=== PATIENT | female | born 1980 | race American Indian/Alaskan Native ===

== ENCOUNTER 2018-08-21 09:34 | Inpatient (IN) | payer MEDICAID ==
[2018-08-21] MEDS ORDERED: LACTATED RINGERS 1,000 ML IV SCH (10:00)
[2018-08-21] MEDS ORDERED: ANCEF/STERILE WATER 2 GM/20 ML 2 GM/20 ML SYRINGE IV NR (10:00)
[2018-08-21 10:26] LABS: Basophils % (Auto) 0.4 % (0.0-1.8); Eosinophils # (Auto) 0.1 K/mm3 (0.0-0.4); Eosinophils % (Auto) 1.4 % (0.0-4.3); Hematocrit 32.9 % (30.3-42.9); Hemoglobin 11.1 gm/dl (10.1-14.3); Lymphocytes # (Auto) 1.1 K/mm3 (1.2-5.4); Mean Corpuscular HGB Conc 34 % (30-34); Mean Corpuscular Volume 81 fl (79-97); Monocytes # (Auto) 0.7 K/mm3 (0.0-0.8); Platelet Count 425 K/mm3 (140-440); Red Blood Count 4.09 M/mm3 (3.65-5.03); Red Cell Distribution Width 19.9 % (13.2-15.2)
--- NOTE | 2018-08-21 10:45 | Anesthesia Consultation ---
Anesthesia Consult and Med Hx Date of service: 08/21/18 - Airway Anesthetic Teeth Evaluation: Good ROM Head & Neck: Adequate Mental/Hyoid Distance: Adequate Mallampati Class: Class II Intubation Access Assessment: Probably Good - Pre-Operative Health Status ASA Pre-Surgery Classification: ASA2 Proposed Anesthetic Plan: Epidural, Spinal - Pulmonary Hx Asthma: Yes COPD: No Hx Pneumonia: No - Cardiovascular System Hx Hypertension: No - Central Nervous System Hx Seizures: No Hx Psychiatric Problems: No - Endocrine Hx Renal Disease: No Hx End Stage Renal Disease: No Hx Hypothyroidism: No Hx Hyperthyroidism: No - Hematic Hx Anemia: No Hx Sickle Cell Disease: No - Other Systems Hx Alcohol Use: No - Additional Comments Anesthesia Medical History Comments: uterine scar, twin gestation
--- NOTE | 2018-08-21 10:45 | Anesthesia Day of Surgery ---
Anesthesia Day of Surgery - Day of Surgery Patient Examined: Yes Patient H&P Reviewed: Yes Patient is NPO: Yes
[2018-08-21] MEDS ORDERED: ZOFRAN IV PRN (11:00)
[2018-08-21] MEDS ORDERED: PEPCID IV NR (11:00)
[2018-08-21] MEDS ORDERED: BICITRA PO NR (11:00)
[2018-08-21] MEDS ORDERED: NARCAN 0.4 MG/1 ML IV PRN ×2 (11:00→13:29)
[2018-08-21] MEDS ORDERED: REGLAN IV NR (11:00)
[2018-08-21] MEDS ORDERED: PHENERGAN PO PRN (11:00)
[2018-08-21] MEDS ORDERED: PITOCin/NS 20 UNIT/1000ML DRIP 20 UNITS/1,000 ML BAG IV SCH ×2 (11:00→14:00)
[2018-08-21] MEDS ORDERED: SODIUM CHLORIDE FLUSH SYRINGE 10 ML IV PRN (11:00)
[2018-08-21] MEDS ORDERED: DILAUDID IV PRN ×2 (11:00)
[2018-08-21] MEDS ORDERED: PHENERGAN PR PRN (11:00)
--- NOTE | 2018-08-21 11:17 | History and Physical Report ---
History of Present Illness Date of examination: 08/21/18 Date of admission: 08/21/18 09:34 Chief complaint: scheduled repeat csec History of present illness: This is a 37 yo at 37+2 with Di DI twins here for scheduled repeat csec. She is a patient of [facility] transferring in at 17 weeks. She is a previous csec x2. Seen and evaluated by MFM secondary to sickle cell trait, AMA. She tested + for open spina bifida. She has a hx of pree on asa. She has been followed by IUGR by MFM as well. Patient had an abnormal 1hr and refused 3hr GTT. She has a hx of herpes without any outbreaks. Past History Past Medical History: hematologic disorders (anemia) Family/Genetic History: diabetes, heart disease, hypertension, cancer (breast) Social history: no significant social history, . denies: smoking, alcohol abuse, prescription drug abuse - Obstetrical History Expected Date of Delivery: 09/12/18 Actual Gestation: 36 Week(s) 6 Day(s) : 6 Para: 3 Hx # Term Pregnancies: 3 Number of Pregnancies: 0 Spontaneous Abortions: 2 Induced : 0 Number of Living Children: 3 Medications and Allergies Allergies Allergy/AdvReac Type Severity Reaction Status Date / Time No Known Allergies Allergy Verified 03/13/18 18:28 Home Medications Medication Instructions Recorded Confirmed Last Taken Type Acetaminophen 500 mg PO Q8H PRN #12 tablet 03/13/18 Unknown Rx Penicillin V Potassium 500 mg PO Q8H 10 Days #30 tablet 03/13/18 Unknown Rx Active Meds: Active Medications Citric Acid/Sodium Citrate (Bicitra) 30 ml PO ONCE NR Stop: 08/21/18 15:00 Diphenhydramine HCl (Benadryl) 12.5 mg IV Q2H PRN PRN Reason: Itching Famotidine (Pepcid) 20 mg IV ONCE NR Stop: 08/21/18 15:00 Hydromorphone HCl (Dilaudid) 0.5 mg IV Q5M PRN PRN Reason: Breakthrough Pain Stop: 08/21/18 15:00 Hydromorphone HCl (Dilaudid) 0.5 mg IV Q4H PRN PRN Reason: breakthrough pain > 7/10 Cefazolin Sodium (Ancef/Sterile Water 2 Gm/20 Ml) 2 gm in 20 mls @ 80 mls/hr IV PREOP NR; Protocol Stop: 08/21/18 15:00 Lactated Ringer's (Lactated Ringers) 1,000 mls @ 2,250 mls/hr IV PREOP ROSIE Stop: 08/22/18 10:27 Oxytocin/Sodium Chloride (Pitocin/Ns 20 Unit/1000ml Drip) 20 units in 1,000 mls @ 0 mls/hr IV TITR ROSIE Ketorolac Tromethamine (Toradol) 30 mg IV Q6H PRN PRN Reason: Pain, Moderate (4-6) Stop: 08/26/18 10:59 Metoclopramide HCl (Reglan) 10 mg IV ONCE NR Stop: 08/21/18 15:00 Naloxone HCl (Narcan 0.4 Mg/1 Ml) 0.2 mg IV Q2MIN PRN PRN Reason: Res Rate </= 8 or 02 SAT < 92% Ondansetron HCl (Zofran) 4 mg IV Q8H PRN PRN Reason: Nausea And Vomiting Promethazine HCl (Phenergan) 25 mg PO Q6H PRN PRN Reason: Nausea And Vomiting Promethazine HCl (Phenergan) 25 mg ID Q6H PRN PRN Reason: Nausea And Vomiting Sodium Chloride (Sodium Chloride Flush Syringe 10 Ml) 10 ml IV PRN PRN PRN Reason: flush Review of Systems All systems: negative - Physical Exam Breasts: Positive: normal Cardiovascular: Regular rate, Normal S1 Lungs: Positive: Clear to auscultation, Normal air movement Abdomen: Positive: normal appearance, soft, normal bowel sounds. Negative: distention Vulva: both: normal Vagina: Positive: normal moisture Uterus: Positive: normal size Anus/Rectum: Positive: normal perianal skin Extremities: Positive: normal Deep Tendon Reflex Grade: Normal +2 - Obstetrical FHR: category 1 Results Result Diagrams: 08/21/18 09:55 Abnormal lab results 08/21/18 Range/Units 09:55 MCH 27 L (28-32) pg RDW 19.9 H (13.2-15.2) % [place] % (Auto) 12.0 H (0.0-7.3) % Lymph # 1.1 L (1.2-5.4) K/mm3 All other labs normal. Assessment and Plan A/P HD#1 DI DI twins at 37+2 weeks AMA, IUGR twin B recommneded delivery 36-37 weeks Previous csec consents for repeat csec which include but not limited to bleeding infection damage to pelvic and non pelvic organs risk of hysterectomy, she understands risk and will proceed with csec declines tubal ligation
[2018-08-21] MEDS ORDERED: SUBLIMAZE ONE (11:59)
[2018-08-21] MEDS ORDERED: NACL 0.9% IR ONE (12:00)
[2018-08-21] MEDS ORDERED: WATER FOR IRRIG STERILE IR ONE (12:00)
[2018-08-21] MEDS ORDERED: XYLOCAINE MPF 2% ONE ×4 (12:38→13:39)
[2018-08-21] MEDS ORDERED: NEO SYNEPHRINE/NS Syringe(OR USE) IV ONE (12:38)
[2018-08-21] MEDS ORDERED: NORCO 5/325 PO PRN (13:29)
[2018-08-21] MEDS ORDERED: ANUCORT-HC PR PRN (13:29)
[2018-08-21] MEDS ORDERED: LANSINOH TP PRN (13:29)
[2018-08-21] MEDS ORDERED: SENOKOT PO PRN (13:29)
[2018-08-21] MEDS ORDERED: TORADOL IV PRN (13:29)
[2018-08-21] MEDS ORDERED: MORPHINE IV PRN ×2 (13:29)
[2018-08-21] MEDS ORDERED: TUCKS PAD TP PRN (13:29)
--- NOTE | 2018-08-21 13:36 | Procedure Note ---
OB Delivery Note - Delivery Date of Delivery: 08/21/18 Surgeon: SONIA SALAS Estimated blood loss: other (700cc) - Section Preop diagnosis: repeat Postop diagnosis: same section procedure: section Disposition: PACU Complications: none Narrative: see op note - Infant A at 1 minute: 8 at 5 minutes: 9 Gender: Female (5 pounds 7 oz) B at 1 minute: 8 at 5 minutes: 9 Gender: Male (6 pounds 2 oz)
--- NOTE | 2018-08-21 13:47 | Operative Report ---
Operative Report Operative Report: PREOPERATIVE DIAGNOSES: 1. Twins DI DI 2. IUGR 3. Previous csec x2 POSTOPERATIVE DIAGNOSES: 1-3 BECCA OPERATION: Repeat section by low-transverse incision. ANESTHESIA: Epidural. ESTIMATED BLOOD LOSS: 700 mL. COMPLICATIONS: None. CONDITION: Stable. DRAINS: Kendall catheter. INDICATIONS: The patient is a 37-year-old, G6 para 3 at 36 weeks with twins with scheduled csec. The risks and benefits of this surgery were reviewed, and knowing these facts, the patient gave informed consent. PROCEDURE: The patient was taken to the operating room where her epidural anesthesia was reinforced. She was prepped and draped in the usual fashion for the procedure. After adequate epidural level was confirmed, the scalp was utilized to make a transverse incision in the patient's lower abdominal wall. This incision was carried down to the level of the fascia, which was also transversely incised. After adequate hemostasis, the fascia was bluntly and sharply up from the underlying rectus muscle. The rectus muscle was in midline exposing the peritoneum. The peritoneum was carefully grasped and elevated with hemostats. It was entered in an up and down fashion with Metzenbaum scissors. The bladder blade was placed in the lower pole of the incision to protect the bladder. The uterus was palpated and inspected. A thin lower uterine segment was noted. The vertex presentation was confirmed. The scalp was then utilized to make a transverse or Cuello incision in the lower uterine wall. Clear fluid was noted upon entering into the amniotic space. At 1238, a viable female infant was delivered up through the incision with breech delivery. She had spontaneous respirations. She was given bulb suctioning for clear fluid. Her cord was clamped and cut and she was delivered off the field to [facility] who was attending. The baby girl was subsequently signed Apgars of 8 at one minute and 9 at five minutes. Her weight was found to be 5 pounds and 7 ounces. The amnionic sac of second baby ruptured with clear fluid and male in cephalic presentation delivered at 123. The placenta was manually extracted from the endometrial cavity. A ring clamp and two Allis clamps were placed around the margin of the uterine incision for hemostasis. The uterus was left in abdomen and sutured secondary dense adhesions . The endometrial cavity was swiped clean with a moist laparotomy pad. The uterine incision was then closed in a two-layered fashion with 0 Vicryl suture, the first layer interlocking and the second layer imbricating. Two additional stitches of 3-0 Vicryl suture were utilized for hemostasis. The uterine incision was noted to be hemostatic upon closure. tissel and surgicel placed for excellent hemostasis. Normal tubes and ovaries were noted on both sides. The sponge and instrument count was performed for the first time at this point and found to be correct. The pelvis and anterior uterine space was then irrigated with saline solution. It was suctioned dry. A final check of the uterine incision confirmed hemostasis. The rectus muscle was stabilized across the midline with two simple stitches of 0 Vicryl suture. The subcutaneous tissue was then exposed, and the fascia closed with two running lengths of 0 PDS suture, beginning in lateral margins and overlapping the midline. The subcutaneous tissue was then irrigated and inspected. No active bleeding was noted. The skin was then approximated with gosia needle. The incision was cleansed and sterilely dressed. The patient was transferred to the recovery room in stable condition. The estimated blood loss through the procedure was 700 mL. The sponge and instrument counts were performed two more times during closure and found to be correct each time.
[2018-08-21] MEDS ORDERED: MYLICON PO PRN (13:49)
[2018-08-21] MEDS ORDERED: SODIUM CHLORIDE FLUSH SYRINGE 10 ML IV SCH (14:00)
[2018-08-21] MEDS: TORADOL IV PRN ×2 (14:29→19:59)
[2018-08-21] MEDS ORDERED: ANCEF/NS 1 GM/50 ML 1 GM/50 ML BAG IV SCH (16:00)
[2018-08-21] MEDS: D5LR 1,000 ML IV SCH (19:58)
[2018-08-21] MEDS: MILK OF MAGNESIA PO PRN (20:05)
--- NOTE | 2018-08-21 23:52 | Post Anesthesia Evaluation ---
- Post Anesthesia Evaluation Patient Participated: Yes Airway Patent: Yes Stable Respiratory Function: Yes Nausea/Vomiting: No Temp > 96.8F: Yes Pain Manageable: Yes Adequeate Hydration: Yes Anesthesia Complications: No Block Receding Appropriately: Yes Patient on Ventilator: No
[2018-08-22 01:37] LABS: Hematocrit 25.1 % (30.3-42.9); Hemoglobin 8.4 gm/dl (10.1-14.3)
[2018-08-22] MEDS: ANCEF/NS 1 GM/50 ML 1 GM/50 ML BAG IV SCH ×2 (01:41→10:18)
[2018-08-22] MEDS: D5LR 1,000 ML IV SCH (01:48)
[2018-08-22] MEDS ORDERED: BOOSTRIX IM ONE (06:00)
--- NOTE | 2018-08-22 08:42 | Progress Note ---
Assessment and Plan A/P POD#1 s/p repeat csec for di di twins routine postop care Subjective - Subjective Date of service: 08/22/18 Principal diagnosis: s/p repeat csec Interval history: This is a 37 yo at 37+2 with Di DI twins here for scheduled repeat csec. She is a patient of [facility] transferring in at 17 weeks. She is a previous csec x2. Seen and evaluated by MFM secondary to sickle cell trait, AMA. She tested + for open spina bifida. She has a hx of pree on asa. She has been followed by IUGR by MFM as well. Patient had an abnormal 1hr and refused 3hr GTT. She has a hx of herpes without any outbreaks. Patient reports: appetite normal, voiding normally, pain well controlled, flatus, ambulating normally [place]: doing well Objective - Vital Signs Latest vital signs: Vital Signs Temp Pulse Resp BP BP Pulse Ox 08/22/18 03:00 98.9 F 101 H 18 105/71 98 08/22/18 00:00 98.8 F 94 H 18 110/68 08/21/18 20:00 98.6 F 96 H 96 H 114/73 08/21/18 14:45 97.3 F L 75 16 105/63 100 08/21/18 14:30 79 17 113/77 99 08/21/18 14:15 76 16 114/77 98 08/21/18 14:00 75 17 113/76 99 08/21/18 13:45 82 18 103/70 98 08/21/18 13:40 97.7 F 93 H 15 98/77 08/21/18 11:27 93 H 112/74 Intake and Output 08/21/18 08/22/18 08/22/18 23:59 07:59 15:59 Intake Total 360 969.167 Output Total 500 250 Balance -140 719.167 Intake: IV 729.167 D5lr 1,000 ml @ 125 mls/ 729.167 hr IV DIRECT ROSIE Rx#: [id number] Intake, Free Water 360 240 Output: Urine 500 250 Indwelling Catheter 500 250 Other: Total, Output Amount 500 250 # Voids Void 0 - Exam Breasts: Present: normal Cardiovascular: Present: Regular rate, Normal S1 Lungs: Present: Clear to auscultation, Normal air movement Abdomen: Present: normal appearance, soft, normal bowel sounds. Absent: distention, tenderness, guarding Uterus: Present: normal, firm, fundal height below umbilicus. Absent: bogginess Extremities: Present: normal Deep Tendon Reflex Grade: Normal +2 Incision: Present: normal, dry, dressed - Labs Labs: Abnormal lab results 08/21/18 08/22/18 Range/Units 09:55 01:22 Hgb 8.4 L (10.1-14.3) gm/dl Hct 25.1 L D (30.3-42.9) % MCH 27 L (28-32) pg RDW 19.9 H (13.2-15.2) % [place] % (Auto) 12.0 H (0.0-7.3) % Lymph # 1.1 L (1.2-5.4) K/mm3
[2018-08-22] MEDS: PRENATAL VITAMIN PO SCH (10:17)
[2018-08-22] MEDS: FEOSOL PO SCH (10:17)
[2018-08-22] MEDS: PERCOCET 5/325 PO PRN ×4 (10:24→22:04)
[2018-08-22] MEDS ORDERED: M-M-R II VACCINE SUB-Q ONE (13:31)
[2018-08-22] MEDS: IBUPROFEN PO PRN (17:55)
[2018-08-22] MEDS: MILK OF MAGNESIA PO PRN (22:04)
[2018-08-23] MEDS: IBUPROFEN PO PRN ×4 (02:35→22:21)
[2018-08-23] MEDS: PERCOCET 5/325 PO PRN ×2 (02:35→23:42)
[2018-08-23] MEDS: BENADRYL IV PRN ×2 (07:55→23:38)
[2018-08-23] MEDS: PRENATAL VITAMIN PO SCH (08:30)
[2018-08-23] MEDS: FEOSOL PO SCH (08:30)
[2018-08-23] MEDS: TYLENOL PO PRN ×2 (10:53→18:53)
[2018-08-23] MEDS ORDERED: NORCO 5/325 PO PRN (17:29)
--- NOTE | 2018-08-23 17:29 | Progress Note ---
Assessment and Plan POD 2 s/p ltcs for twins. Pt feels well but is complaining of itching after taking percocet. Will try hydrocodone instead to see if symptoms are any different. Subjective - Subjective Date of service: 08/23/18 Principal diagnosis: s/p repeat csec Patient reports: appetite normal, voiding normally, pain well controlled, other (itching k) [place]: doing well Objective - Vital Signs Latest vital signs: Vital Signs Temp Pulse Resp BP Pulse Ox 08/23/18 15:39 98.3 F 129 H 18 107/64 97 08/23/18 14:05 14 08/23/18 10:53 14 08/23/18 07:53 100 F H 120 H 18 110/67 96 08/23/18 00:35 97.8 F 99 H 18 97/62 98 08/22/18 17:55 20 08/22/18 17:54 20 Intake and Output 08/23/18 08/23/18 08/23/18 06:59 14:59 22:59 Intake Total 240 Balance 240 Intake: Oral 240 Other: Total, Intake Amount 120 # Voids Void 1 - Exam Cardiovascular: Present: Regular rate, Normal S1, Normal S2 Lungs: Present: Clear to auscultation, Normal air movement Abdomen: Present: normal appearance, soft Uterus: Present: normal, firm Extremities: Present: normal Incision: Present: normal, dry, intact
[2018-08-24] MEDS: IBUPROFEN PO PRN (05:27)
[2018-08-24] MEDS: PRENATAL VITAMIN PO SCH (09:09)
[2018-08-24] MEDS: FEOSOL PO SCH (09:09)
[2018-08-24] MEDS: PERCOCET 5/325 PO PRN (09:10)
[2018-08-24] MEDS: BENADRYL IV PRN (09:10)
--- NOTE | 2018-08-24 15:28 | Discharge Summary ---
Providers - Providers Date of Admission: 08/21/18 09:34 Date of discharge: 08/24/18 Attending physician: SONIA SALAS MD Primary care physician: SONIA SALAS MD Hospitalization Reason for admission: other Delivery: Procedure: primary low transverse Incision: normal, dry, intact complications: none Discharge diagnosis: IUP at term delivered baby: twins Hospital course: unremarkable Condition at discharge: Good Disposition: DC-01 TO HOME OR SELFCARE Plan - Discharge Medications Prescriptions: Docusate Sodium [Colace] 100 mg PO BID PRN #60 capsule PRN Reason: Constipation Ibuprofen [Motrin] 800 mg PO Q8HR PRN #40 tablet PRN Reason: Pain, Moderate (4-6) Oxycodone HCl/Acetaminophen [Percocet 7.5/325 mg] 1 each PO Q6HR PRN #40 tablet PRN Reason: Pain - Provider Discharge Summary Activity: routine, no sex for 6 weeks, no heavy lifting 4 weeks, no strenuous exercise Diet: routine Instructions: routine Additional instructions: [] Smoking cessation referral if applicable(refer to patient education folder for contact #) [] Refer to [facility] Booklet Call your doctor immediately for: * Fever > 100.5 * Heavy vaginal bleeding ( >1 pad per hour) * Severe persistent headache * Shortness of breath * Reddened, hot, painful area to leg or breast * Drainage or odor from incision. * Keep incision clean and dry at all times and follow doctor's instructions regarding bathing/showering - Follow up plan Follow up: SONIA SALAS MD [Primary Care Provider] - 7 Days
[2018-08-24] MEDS: TYLENOL PO PRN (16:16)
[2018-08-24 17:19] VITALS: BP 107/62
== END 2018-08-24 16:55 | disposition home or self-care (01) | DRG 765 ==
LOC: APU 09:34 → OB 16:47
PROVIDERS: ADMIT Obstetrics & Gynecology; ATTEND Obstetrics & Gynecology
PROC: 10D00Z1 Extraction of Products of Conception, Low, Open Approach (ICD-10-PCS; principal; 2018-08-21)
PROC: 0UN90ZZ Release Uterus, Open Approach (ICD-10-PCS; 2018-08-21)
PROC: 3E0234Z Introduction of Serum, Toxoid and Vaccine into Muscle, Percutaneous Approach (ICD-10-PCS; 2018-08-22)
DX: O34.211 Maternal care for low transverse scar from previous cesarean delivery (principal); O36.5932 Maternal care for other known or suspected poor fetal growth, third trimester, fetus 2; O30.043 Twin pregnancy, dichorionic/diamniotic, third trimester; O99.52 Diseases of the respiratory system complicating childbirth; J45.909 Unspecified asthma, uncomplicated; O99.89 Other specified diseases and conditions complicating pregnancy, childbirth and the puerperium; N73.6 Female pelvic peritoneal adhesions (postinfective); Z3A.36 36 weeks gestation of pregnancy; Z37.2 Twins, both liveborn; Z83.3 Family history of diabetes mellitus; Z82.49 Family history of ischemic heart disease and other diseases of the circulatory system; Z80.3 Family history of malignant neoplasm of breast; Z79.899 Other long term (current) drug therapy; Z23 Encounter for immunization
CPT/HCPCS: 36415; 85014; 85018; 85025; 86592; 86850; 86900; 86901; 88307; G0378; C9250; J0690; J1170; J1200; J1885; J2270; J2370; J2590; J2765; J3010; J7120; J7121

== ENCOUNTER 2018-09-11 13:11 | Outpatient (CLI) | payer MEDICAID ==
[2018-09-11] MEDS ORDERED: XYLOCAINE TOPICAL 4% TP ONE (13:30)
[2018-09-11] MEDS ORDERED: SILVER NITRATE TP ONE (14:00)
== END 2018-09-11 13:12 | disposition home or self-care (01) ==
LOC: WOUND 13:11
PROVIDERS: ATTEND Surgery
DX: T81.89XD Other complications of procedures, not elsewhere classified, subsequent encounter (principal); L92.9 Granulomatous disorder of the skin and subcutaneous tissue, unspecified; Y83.8 Other surgical procedures as the cause of abnormal reaction of the patient, or of later complication, without mention of misadventure at the time of the procedure
CPT/HCPCS: 17250; G0463; 99214